=== PATIENT | male | born 1980 | race Caucasian/White ===

== ENCOUNTER 2017-11-19 14:31 | Emergency (ER) | payer OTHER ==
[2017-11-19 14:34] VITALS: BMI 31.5
[2017-11-19 14:40] VITALS: BP 138/79; PULSE 86; RESP 18; TEMP 99.1; O2SAT 99
--- NOTE | 2017-11-19 15:27 | ED PDOC ---
Arrival/HPI - General Chief Complaint: Trauma Time Seen by Provider: 11/19/17 14:41 Past Medical History - Infectious Disease Hx of Infectious Diseases: None - Psychiatric Hx Substance Use: No - Anesthesia Hx Anesthesia: No Family/Social History Smoking Status: Heavy Smoker > 10 Cigarettes Daily Hx Alcohol Use: No Hx Substance Use: No Allergies/Home Meds Allergies/Adverse Reactions: Allergies No Known Allergies Allergy (Verified 11/19/17 14:35) Home Medications: Home Meds Medication Instructions Recorded Confirmed No Known Home Med 11/19/17 11/19/17 Physical Exam Vital Signs Temp Pulse Resp BP Pulse Ox 11/19/17 14:37 99.1 F 86 18 138/79 99 Medical Decision Making ED Course and Treatment: 11/19/17 15:00 EKG: Ordered, reviewed, and independently interpreted the EKG. Rate :76 BPM Rhythm : NSR with sinus arrhythmia. Interpretation : No ST-segment elevations or depressions, no T-wave inversions, q wave in lead II. Disposition/Present on Arrival - Present on Arrival History of DVT/PE: No History of Uncontrolled Diabetes: No Urinary Catheter: No History of Decub. Ulcer: No History Surgical Site Infection Following: None - Disposition Referrals: PCP,NO [Primary Care Provider] - Follow up with primary Forms: [employer] (Z[place]an)
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
--- NOTE | 2017-11-20 21:17 | CARD ---
APPROVED REPORT Date of service: 11/19/2017 EKG Measurement Heart [id number] <Conclusion> Poor data quality, interpretation may be adversely affected Normal sinus rhythm with sinus arrhythmia Moderate voltage criteria for LVH, may be normal variant Inferior infarct, age undetermined Abnormal ECG
== END 2017-11-19 15:34 | disposition left against medical advice (07) ==
LOC: ED 14:31
DX: Z04.1 Encounter for examination and observation following transport accident (principal); V47.5XXA Car driver injured in collision with fixed or stationary object in traffic accident, initial encounter; Y92.410 Unspecified street and highway as the place of occurrence of the external cause